=== PATIENT | female | born 1995 | race Two or more races ===

== ENCOUNTER 2021-04-11 15:36 | Outpatient (CLI) | payer OTHER | END 2021-04-11 15:40 | disposition home or self-care (01) | LOC: LAB 15:36 | DX: J12.89 Other viral pneumonia (principal); J98.8 Other specified respiratory disorders; J20.8 Acute bronchitis due to other specified organisms; R50.9 Fever, unspecified; R06.2 Wheezing; R05.8 Other specified cough ==